=== PATIENT | male | born 1950 | race Caucasian/White ===

== ENCOUNTER 2021-12-01 15:14 | Observation (INO) | payer BC, MEDICARE, SELFPAY ==
[2021-12-01] VITALS (25 sets, daily range): BP systolic 153–193; BP diastolic 74–107; PULSE 63–84; RESP 15–29; TEMP 36.6; O2SAT 93–99; BMI 31.8
--- NOTE | 2021-12-01 15:28 | DI.RAD.S_ITS ---
PROCEDURE: XR CHEST 1V INDICATIONS: Chest pain TECHNIQUE: One view of the chest was acquired. COMPARISON: None. FINDINGS: Surgical changes and devices: None. Lungs and pleura: Lungs are clear. No pleural effusions or pneumothorax. Mediastinum: Mediastinal contours appear normal. Heart size is normal. Bones and chest wall: No suspicious bony lesions. Overlying soft tissues appear unremarkable. IMPRESSION: No acute cardiopulmonary process demonstrated radiographically. Dictated by: Luis Carlos Palomares M.D. on 12/01/2021 at 14:43 Approved by: Luis Carlos Palomares M.D. on 12/01/2021 at 14:44
--- NOTE | 2021-12-01 15:50 | DI.CT.S_ITS ---
PROCEDURE: CT ANGIO HEAD AND NECK INDICATIONS: Dizziness TECHNIQUE: Pre-contrast 4.5 mm thick sections acquired from the foramen magnum to the vertex. After the administration of intravenous contrast, 1 mm thick sections acquired from the aortic arch through the [place] of [place]. Post-contrast 4.5 mm thick sections then re-acquired from the foramen magnum to the vertex. 3-dimensional wvsskyf-flmqihfpp-fgkmxefuvs (MIP) and/or volume rendering reformats were acquired of the central intracranial vasculature and neck separately. COMPARISON: None. FINDINGS: Image quality: Excellent. BRAIN: CSF spaces: Ventricles are normal in size and shape. Basal cisterns are patent. No extra-axial fluid collections. Brain: No midline shift. No intracranial bleeds or masses. Villegas-white matter interface appears intact. Skull and face: Calvarium and facial bones appear intact, without suspicious lesions. Orbits appear normal. Sinuses: Sinuses and mastoids are clear. HEAD CT ANGIOGRAPHY: Anterior circulation: Intracranial internal carotid arteries are normal in size and flow. The flow within the paired anterior cerebral arteries is normal and symmetric. The flow within the middle cerebral arteries is normal and symmetric. The anterior communicating artery is seen. No aneurysms are seen. Posterior circulation: Visualized portions of the vertebral arteries demonstrate normal caliber, and join to form a normal appearing basilar artery. Flow within the posterior cerebral arteries is normal and symmetric. No aneurysms are seen. Vertebral arteries are codominant. NECK CT ANGIOGRAPHY: The origins of the left and right common, internal and external carotid arteries demonstrate no areas of hemodynamically significant stenosis, vascular occlusion or aneurysmal dilation. Mild calcification is noted at the origin of the left internal carotid artery. Origins of the left and right vertebral arteries demonstrate no areas of hemodynamically significant stenosis, vascular occlusion or aneurysmal dilation. Bovine arch is present consistent with congenital anatomy. Limited, visualized portions of the subclavian vasculature are unremarkable. IMPRESSION: 1. No acute intracranial process. 2. No areas of hemodynamically significant stenosis, vascular occlusion or aneurysmal dilation within the anterior or posterior circulation. 3. No areas of hemodynamically significant stenosis, vascular occlusion or aneurysmal dilation within the neck vasculature. Any quantitative measurements of stenosis were performed using NASCET criteria. Dictated by: Comfort Jacinto M.D. on 12/01/2021 at 16:24 Approved by: Comfort Jacinto M.D. on 12/01/2021 at 16:28
--- NOTE | 2021-12-01 15:51 | ED.DIZZY ---
HPI - Dizziness <Epifanio Lowe MD - Last Filed: 12/06/21 13:37> General Chief Complaint: Dizziness Stated Complaint: HBP, dizzy, R/O stroke Time Seen by Provider: 12/01/21 15:41 Source: patient Mode of arrival: Ambulatory History of Present Illness HPI Narrative: Patient sent here from urgent care for onset of dizziness at 4:30 a.m. this morning when he awoke. Went to bed last night without any difficulties or complaints. No recent illness no fever chills cough cold congestion. No nausea vomiting diarrhea or fluid loss. No urinary complaints. Denies any chest pain are headache. Patient states he got before there is more to go to the bathroom he felt very dizzy. He returned back to his bedroom and slept until 730 any awoke again. Feel a little bit better. He had a home eating and during that time still feel a little lightheaded. No confusion slurred speech or facial droop. He and his called EMS and they did arrive and evaluated him. He declined transfer. This afternoon he decided to go to the urgent care and they sent patient here. Patient states feels better when laying down. When he gets up feels more dizzy. After a little bit of walking feels like the room is spinning. No hearing changes no vision changes no nausea or vomiting. Related Data Home Medications Medication Instructions Recorded Confirmed telmisartan 80 mg tablet 80 mg PO DAILY 12/02/21 12/02/21 Previous Rx's Medication Instructions Recorded meclizine 25 mg tablet 25 mg PO TID PRN #30 tab 12/02/21 metoprolol succinate 25 mg 25 mg PO DAILY #30 tab 12/02/21 tablet,extended release 24 hr Allergies Allergy/AdvReac Type Severity Reaction Status Date / Time Sulfa (Sulfonamide Allergy Severe Swelling Verified 12/01/21 15:24 Antibiotics) of Lip/Tongue/Throat Review of Systems <Epifanio Lowe MD - Last Filed: 12/06/21 13:37> Review of Systems Narrative: GENERAL: Denies chills, fatigue, malaise, fever, sweats. HEENT: Denies sinus pain, ear pain, sore throat RESPIRATORY: Denies dyspnea, cough CARDIOVASCULAR: Denies chest pain, palpitations GASTROINTESTINAL: Denies nausea, vomiting, abdominal pain : Denies dysuria, frequency, hematuria MUSCULOSKELETAL: denies muscle or bony pain SKIN: Denies rash, skin lesions NEUROLOGIC: Denies weakness, numbness, positive for dizziness ROS Unobtainable: All systems reviewed & are unremarkable except as noted in HPI and below Patient History <Epifanio Lowe MD - Last Filed: 12/06/21 13:37> Medical History Essential hypertension Surgical History Hx of tonsillectomy Family History Father Coronary artery occlusion with myocardial infarction Mother Old age Social History household members: spouse Smoking Status: Never smoker alcohol intake: never Smoking Status: Never smoker alcohol intake frequency: 0-2 drinks per day Substance Use Type: does not use Exam <Epifanio Lowe MD - Last Filed: 12/06/21 13:37> Narrative Exam Narrative: GENERAL: in no distress, not toxic not dyspneic HEAD: Normocephalic. EYES: Pupils equal round No scleral icterus. ENT: Mucous membranes moist. NECK: Trachea midline. CARDIOVASCULAR: Regular rate and rhythm without murmurs RESPIRATORY: Clear to auscultation. Breath sounds equal bilaterally. No wheezes, rales, or rhonchi. GASTROINTESTINAL: Abdomen soft, non-tender EXTREMITIES: No gross deformities. BACK: No flank tenderness. NEURO: AOx4. Clear speech no facial droop light touch intact to bilateral face and hands with strong equal caul fat puller. Negative pronator drift. Steady Romberg. On testing gait in the hallway patient becomes slightly ataxic and tilted slightly to left and to the right at times. SKIN: Warm and dry PSYCH: Not anxious, is cooperative Initial Vital Signs Initial Vital Signs: Vital Signs Temperature 97.8 F 12/01/21 15:20 Pulse Rate 68 12/01/21 15:20 Respiratory Rate 18 12/01/21 15:20 Blood Pressure 192/99 H 12/01/21 15:20 Pulse Oximetry 99 12/01/21 15:20 <Eb Justin DO - Last Filed: 12/01/21 21:34> Initial Vital Signs Initial Vital Signs: Vital Signs Temperature 97.8 F 12/01/21 15:20 Pulse Rate 68 12/01/21 15:20 Respiratory Rate 18 12/01/21 15:20 Blood Pressure 192/99 H 12/01/21 15:20 Pulse Oximetry 99 12/01/21 15:20 Course <Epifanio Lowe MD - Last Filed: 12/06/21 13:37> Course Course Narrative: 6:00 p.m.. Sign out to Dr. Justin, labs and imaging have returned. However patient had nausea and dizziness again on retesting. After Antivert Zofran and normal saline and Ativan 0.5 mg has been ordered. Reassess blood pressure and dizziness Orders Ordered: Discontinued Medications Acetaminophen (Acetaminophen 325 Mg Tablet) 650 mg PO Q6HR PRN PRN Reason: Fever/Mild Pain (1-3) Last Admin: 12/02/21 14:22 Dose: 650 mg Documented by: Admin: 12/02/21 08:07 Dose: 650 mg Documented by: Admin: 12/01/21 23:51 Dose: 650 mg Documented by: STUART Aspirin (Aspirin Ec 81 Mg Tablet) 81 mg PO DAILY [facility] Last Admin: 12/02/21 08:06 Dose: 81 mg Documented by: JENNIFER Atorvastatin Calcium (Atorvastatin 20 Mg Tablet) 80 mg PO BEDTIME [facility] Last Admin: 12/01/21 23:51 Dose: 80 mg Documented by: STUART Clopidogrel Bisulfate (Clopidogrel 75 Mg Tablet) 75 mg PO DAILY [facility] Last Admin: 12/02/21 08:06 Dose: 75 mg Documented by: JENNIFER Enoxaparin Sodium (Enoxaparin 40 Mg/0.4 Ml Syringe) 40 mg SUBCUT DAILY [facility] Last Admin: 12/02/21 08:06 Dose: 40 mg Documented by: JENNIFER Sodium Chloride (Normal Saline 0.9%) 1,000 mls @ 1,000 mls/hr IV BOLUS ONE Stop: 12/01/21 18:30 Last Infusion: 12/01/21 18:59 Dose: 0 mls/hr Documented by: Admin: 12/01/21 17:46 Dose: 1,000 mls/hr Documented by: TANNER Labetalol HCl (Labetalol 20 Mg/4 Ml Syringe) 5 mg IV Q4HR PRN PRN Reason: Increased Blood Pressure Lorazepam (Lorazepam 2 Mg/Ml Inj) 0.5 mg IV NOW ONE Stop: 12/01/21 17:48 Last Admin: 12/01/21 17:57 Dose: 0.5 mg Documented by: TANNER Meclizine HCl (Meclizine Hcl 12.5 Mg Tablet) 25 mg PO NOW ONE Stop: 12/01/21 15:51 Last Admin: 12/01/21 16:00 Dose: 25 mg Documented by: JENNIFER Metoprolol Succinate (Metoprolol Er 25 Mg Tablet) 25 mg PO NOW ONE Stop: 12/01/21 22:33 Last Admin: 12/01/21 23:51 Dose: 25 mg Documented by: STUART Metoprolol Succinate (Metoprolol Er 25 Mg Tablet) 25 mg PO DAILY [facility] Last Admin: 12/02/21 09:14 Dose: 25 mg Documented by: JENNIFER Naloxone HCl (Naloxone 0.4 Mg/Ml Vial) 0.2 mg IV Q2MIN PRN PRN Reason: Opiate Reversal Ondansetron HCl (Ondansetron 4 Mg/2 Ml Inj) 4 mg IV NOW ONE Stop: 12/01/21 17:32 Last Admin: 12/01/21 17:47 Dose: 4 mg Documented by: TANNER Ondansetron HCl (Ondansetron 4 Mg/2 Ml Inj) 4 mg IV Q8HR PRN PRN Reason: Nausea And Vomiting Last Admin: 12/02/21 10:50 Dose: 4 mg Documented by: Admin: 12/01/21 23:23 Dose: 4 mg Documented by: MARY Vital Signs Vital signs: Vital Signs - 8 hr 12/01/21 15:20 12/01/21 17:33 12/01/21 17:34 Temperature 97.8 F Pulse Rate 68 84 Pulse Rate [Orthostatic Lying] Pulse Rate [Orthostatic Sitting] Pulse Rate [Orthostatic Standing] Respiratory Rate 18 20 Blood Pressure 192/99 H 185/95 H Blood Pressure [Orthostatic Lying] Blood Pressure [Orthostatic Sitting] Blood Pressure [Orthostatic Standing] Pulse Oximetry 99 97 12/01/21 17:44 12/01/21 18:00 12/01/21 18:01 Temperature Pulse Rate 69 69 69 Pulse Rate [Orthostatic Lying] Pulse Rate [Orthostatic Sitting] Pulse Rate [Orthostatic Standing] Respiratory Rate 18 19 18 Blood Pressure 153/80 H 182/87 H Blood Pressure [Orthostatic Lying] Blood Pressure [Orthostatic Sitting] Blood Pressure [Orthostatic Standing] Pulse Oximetry 97 95 12/01/21 18:30 12/01/21 19:00 12/01/21 20:04 Temperature Pulse Rate 66 70 80 Pulse Rate [Orthostatic Lying] Pulse Rate [Orthostatic Sitting] Pulse Rate [Orthostatic Standing] Respiratory Rate 15 20 19 Blood Pressure 170/81 H 179/89 H Blood Pressure [Orthostatic Lying] Blood Pressure [Orthostatic Sitting] Blood Pressure [Orthostatic Standing] Pulse Oximetry 94 97 99 12/01/21 20:05 Temperature Pulse Rate Pulse Rate [Orthostatic Lying] 76 Pulse Rate [Orthostatic Sitting] 80 Pulse Rate [Orthostatic Standing] 80 Respiratory Rate Blood Pressure Blood Pressure [Orthostatic Lying] 182/92 H Blood Pressure [Orthostatic Sitting] 193/96 H Blood Pressure [Orthostatic Standing] 187/107 H Pulse Oximetry <Eb Justin, DO - Last Filed: 12/01/21 21:34> Course Course Narrative: 6:00 p.m.. Sign out to Dr. Justin, labs and imaging have returned. However patient had nausea and dizziness again on retesting. After Antivert Zofran and normal saline and Ativan 0.5 mg has been ordered. Reassess blood pressure and dizziness 1800 (Nhan) I received this patient in sign-out from Dr. Lowe. I performed an independent history and physical exam. Patient has a concerning history and physical exam, despite the above-stated therapies his dizziness persists it he is ataxic. Imaging thus far has been reassuring. On exam his dizziness is not obviously reproducible and there is no nystagmus, it is not clearly plate to a peripheral cause. His blood pressure has been fluctuating a bit but there is no temporal relationship between the higher pressures and his symptoms. Patient will require hospitalization for further evaluation and treatment Orders Ordered: Discontinued Medications Acetaminophen (Acetaminophen 325 Mg Tablet) 650 mg PO Q6HR PRN PRN Reason: Fever/Mild Pain (1-3) Last Admin: 12/02/21 14:22 Dose: 650 mg Documented by: Admin: 12/02/21 08:07 Dose: 650 mg Documented by: Admin: 12/01/21 23:51 Dose: 650 mg Documented by: STUART Aspirin (Aspirin Ec 81 Mg Tablet) 81 mg PO DAILY [facility] Last Admin: 12/02/21 08:06 Dose: 81 mg Documented by: JENNIFER Atorvastatin Calcium (Atorvastatin 20 Mg Tablet) 80 mg PO BEDTIME [facility] Last Admin: 12/01/21 23:51 Dose: 80 mg Documented by: STUART Clopidogrel Bisulfate (Clopidogrel 75 Mg Tablet) 75 mg PO DAILY [facility] Last Admin: 12/02/21 08:06 Dose: 75 mg Documented by: JENNIFER Enoxaparin Sodium (Enoxaparin 40 Mg/0.4 Ml Syringe) 40 mg SUBCUT DAILY [facility] Last Admin: 12/02/21 08:06 Dose: 40 mg Documented by: JENNIFER Sodium Chloride (Normal Saline 0.9%) 1,000 mls @ 1,000 mls/hr IV BOLUS ONE Stop: 12/01/21 18:30 Last Infusion: 12/01/21 18:59 Dose: 0 mls/hr Documented by: Admin: 12/01/21 17:46 Dose: 1,000 mls/hr Documented by: TANNER Labetalol HCl (Labetalol 20 Mg/4 Ml Syringe) 5 mg IV Q4HR PRN PRN Reason: Increased Blood Pressure Lorazepam (Lorazepam 2 Mg/Ml Inj) 0.5 mg IV NOW ONE Stop: 12/01/21 17:48 Last Admin: 12/01/21 17:57 Dose: 0.5 mg Documented by: TANNER Meclizine HCl (Meclizine Hcl 12.5 Mg Tablet) 25 mg PO NOW ONE Stop: 12/01/21 15:51 Last Admin: 12/01/21 16:00 Dose: 25 mg Documented by: JENNIFER Metoprolol Succinate (Metoprolol Er 25 Mg Tablet) 25 mg PO NOW ONE Stop: 12/01/21 22:33 Last Admin: 12/01/21 23:51 Dose: 25 mg Documented by: STUART Metoprolol Succinate (Metoprolol Er 25 Mg Tablet) 25 mg PO DAILY [facility] Last Admin: 12/02/21 09:14 Dose: 25 mg Documented by: JENNIFER Naloxone HCl (Naloxone 0.4 Mg/Ml Vial) 0.2 mg IV Q2MIN PRN PRN Reason: Opiate Reversal Ondansetron HCl (Ondansetron 4 Mg/2 Ml Inj) 4 mg IV NOW ONE Stop: 12/01/21 17:32 Last Admin: 12/01/21 17:47 Dose: 4 mg Documented by: TANNER Ondansetron HCl (Ondansetron 4 Mg/2 Ml Inj) 4 mg IV Q8HR PRN PRN Reason: Nausea And Vomiting Last Admin: 12/02/21 10:50 Dose: 4 mg Documented by: Admin: 12/01/21 23:23 Dose: 4 mg Documented by: MARY Vital Signs Vital signs: Vital Signs - 8 hr 12/01/21 15:20 12/01/21 17:33 12/01/21 17:34 Temperature 97.8 F Pulse Rate 68 84 Pulse Rate [Orthostatic Lying] Pulse Rate [Orthostatic Sitting] Pulse Rate [Orthostatic Standing] Respiratory Rate 18 20 Blood Pressure 192/99 H 185/95 H Blood Pressure [Orthostatic Lying] Blood Pressure [Orthostatic Sitting] Blood Pressure [Orthostatic Standing] Pulse Oximetry 99 97 12/01/21 17:44 12/01/21 18:00 12/01/21 18:01 Temperature Pulse Rate 69 69 69 Pulse Rate [Orthostatic Lying] Pulse Rate [Orthostatic Sitting] Pulse Rate [Orthostatic Standing] Respiratory Rate 18 19 18 Blood Pressure 153/80 H 182/87 H Blood Pressure [Orthostatic Lying] Blood Pressure [Orthostatic Sitting] Blood Pressure [Orthostatic Standing] Pulse Oximetry 97 95 12/01/21 18:30 12/01/21 19:00 12/01/21 20:04 Temperature Pulse Rate 66 70 80 Pulse Rate [Orthostatic Lying] Pulse Rate [Orthostatic Sitting] Pulse Rate [Orthostatic Standing] Respiratory Rate 15 20 19 Blood Pressure 170/81 H 179/89 H Blood Pressure [Orthostatic Lying] Blood Pressure [Orthostatic Sitting] Blood Pressure [Orthostatic Standing] Pulse Oximetry 94 97 99 12/01/21 20:05 Temperature Pulse Rate Pulse Rate [Orthostatic Lying] 76 Pulse Rate [Orthostatic Sitting] 80 Pulse Rate [Orthostatic Standing] 80 Respiratory Rate Blood Pressure Blood Pressure [Orthostatic Lying] 182/92 H Blood Pressure [Orthostatic Sitting] 193/96 H Blood Pressure [Orthostatic Standing] 187/107 H Pulse Oximetry MDM - Dizziness <Epifanio Lowe MD - Last Filed: 12/06/21 13:37> Differential Diagnosis Differential diagnosis: Likely benign paroxysmal positional vertigo, orthostatic hypotension, vertebral basilar insufficiency, cerebrovascular accident, acute vestibular neuronitis, transient cerebral ischemia and other (Vertigo) Lab Data Result diagrams: 12/02/21 04:37 12/02/21 04:37 Labs: Lab Results 12/01/21 12/01/21 12/01/21 Range/Units 15:47 15:47 15:47 WBC 10.9 (4.5-11.0) X10^3/uL RBC 5.52 (4.5-5.9) X10^6/uL Hgb 16.5 (13.5-17.5) g/dL Hct 48.4 (41-53) % MCV 87.7 (80-100) fL MCH 29.8 (26-34) PG MCHC 34.0 (30-36) % RDW 13.8 (11.6-14.8) % Plt Count 350 (150-400) X10^3/uL Neut % (Auto) 88.7 H (50-75) % Lymph % (Auto) 8.0 L (25-40) % Avery % (Auto) 2.7 L (3-14) % Eos % (Auto) 0.1 L (2-4) % Baso % (Auto) 0.5 (0-2) % Neut # (Auto) 9700 H (8828-8858) /uL Lymph # (Auto) 900 L (4592-7740) /uL Avery # (Auto) 300 (0-900) /uL Eos # (Auto) 0 (0-450) /uL Baso # (Auto) 100 (0-100) /uL Sodium 139 (137-145) mmol/L Potassium 4.2 (3.4-5.1) mmol/L Chloride 104 (98-107) mmol/L Carbon Dioxide 24 (22-32) mmol/L BUN 13 (9-20) mg/dL Creatinine 0.79 (0.66-1.25) mg/dL Estimated GFR > 60.0 (>60) mL/min BUN/Creatinine Ratio 16.5 (6-22) Glucose 143 H (80-110) mg/dL Calcium 9.4 (8.4-10.2) mg/dL Magnesium 2.0 (1.6-2.3) mg/dL Total Bilirubin 0.8 (0.2-1.3) mg/dL AST 28 (17-59) IU/L ALT 21 (<50) IU/L Alkaline Phosphatase 57 (38-126) U/L Total Creatine Kinase 51 L (55-170) U/L CK-MB (CK-2) TNP CK-MB (CK-2) Rel Index TNP Troponin I < 0.012 (0.01-0.034) ng/mL Total Protein 7.6 (6.3-8.2) g/dL Albumin 4.8 (3.5-5.0) g/dL Globulin 2.8 (1.7-4.1) g/dL Albumin/Globulin Ratio 1.7 (1.0-2.8) TSH 0.455 L (0.47-4.68) uIU/mL Imaging Data Chest x-ray: Radiologist's Impression: [address] [address] XRay Report Signed Patient: Erick Purvis MR#: [id number] : 1950 Acct:[id number] Age/Sex: 71 / M Date of Service: 12/01/21 Loc: ED Accession Number: [id number] ?? Procedure: XR chest 1V Ordering Provider: Epifanio Lowe MD PROCEDURE:? XR CHEST 1V ? INDICATIONS:? Chest pain ? TECHNIQUE:? One view of the chest was acquired.? ? COMPARISON:? None. ? FINDINGS:? ? Surgical changes and devices:? None.? ? Lungs and pleura:? Lungs are clear.? No pleural effusions or pneumothorax.? ? Mediastinum:? Mediastinal contours appear normal.? Heart size is normal.? ? Bones and chest wall:? No suspicious bony lesions.? Overlying soft tissues appear unremarkable.? ? IMPRESSION:? No acute cardiopulmonary process demonstrated radiographically. ? ? Dictated by: Luis Carlos Palomares M.D. on 12/01/2021 at 14:43 ? ? Approved by: Luis Carlos Palomares M.D. on 12/01/2021 at 14:44 ? CTA - brain/neck: Radiologist's Impression: [address] [address] [address] Scan Report Signed Patient: Erick Purvis#: [id number] : 1950 Acct:[id number] Age/Sex: 71 / M Date of Service: 12/01/21 Loc: ED Accession Number: [id number] ?? Procedure: CT angio head and neck Ordering Provider: Epifanio Lowe MD PROCEDURE:? CT ANGIO HEAD AND NECK ? INDICATIONS:? Dizziness ? TECHNIQUE:? Pre-contrast 4.5 mm thick sections acquired from the foramen magnum to the vertex.? After the administration of intravenous contrast, 1 mm thick sections acquired from the aortic arch through the [place].? Post-contrast 4.5 mm thick sections then re-acquired from the foramen magnum to the vertex.? 3-dimensional teavucr-rguhnehnh-janrtgcepz (MIP) and/or volume rendering reformats were acquired of the central intracranial vasculature and neck separately. ? COMPARISON:? None. ? FINDINGS:? Image quality:? Excellent.? ? BRAIN:? CSF spaces:? Ventricles are normal in size and shape.? Basal cisterns are patent.? No extra-axial fluid collections.? ? Brain:? No midline shift.? No intracranial bleeds or masses.? Villegas-white matter interface appears intact.? ? Skull and face:? Calvarium and facial bones appear intact, without suspicious lesions.? Orbits appear normal.? ? Sinuses:? Sinuses and mastoids are clear.? ? HEAD CT ANGIOGRAPHY:? Anterior circulation:? Intracranial internal carotid arteries are normal in size and flow.? The flow within the paired anterior cerebral arteries is normal and symmetric.? The flow within the middle cerebral arteries is normal and symmetric.? The anterior communicating artery is seen.? No aneurysms are seen.? ? Posterior circulation:? Visualized portions of the vertebral arteries demonstrate normal caliber, and join to form a normal appearing basilar artery.? Flow within the posterior cerebral arteries is normal and symmetric.? No aneurysms are seen.? Vertebral arteries are codominant. ? NECK CT ANGIOGRAPHY:? The origins of the left and right common, internal and external carotid arteries demonstrate no areas of hemodynamically significant stenosis, vascular occlusion or aneurysmal dilation.? Mild calcification is noted at the origin of the left internal carotid artery.? Origins of the left and right vertebral arteries demonstrate no areas of hemodynamically significant stenosis, vascular occlusion or aneurysmal dilation.? Bovine arch is present consistent with congenital anatomy.? Limited, visualized portions of the subclavian vasculature are unremarkable. ? ? IMPRESSION:? ? 1. No acute intracranial process. ? 2. No areas of hemodynamically significant stenosis, vascular occlusion or aneurysmal dilation within the anterior or posterior circulation.? ? 3. No areas of hemodynamically significant stenosis, vascular occlusion or aneurysmal dilation within the neck vasculature. ? Any quantitative measurements of stenosis were performed using NASCET criteria.? ? ? Dictated by: Comfort Jacinto M.D. on 12/01/2021 at 16:24 ? ? Approved by: Comfort Jacinto M.D. on 12/01/2021 at 16:28 ? ECG Data Interpretation: Normal sinus rhythm rate [address] elevation or depression., left axis deviation <Eb Justin DO - Last Filed: 12/01/21 21:34> Lab Data Labs: Lab Results 12/01/21 12/01/21 12/01/21 Range/Units 15:47 15:47 15:47 WBC 10.9 (4.5-11.0) X10^3/uL RBC 5.52 (4.5-5.9) X10^6/uL Hgb 16.5 (13.5-17.5) g/dL Hct 48.4 (41-53) % MCV 87.7 (80-100) fL MCH 29.8 (26-34) PG MCHC 34.0 (30-36) % RDW 13.8 (11.6-14.8) % Plt Count 350 (150-400) X10^3/uL Neut % (Auto) 88.7 H (50-75) % Lymph % (Auto) 8.0 L (25-40) % Avery % (Auto) 2.7 L (3-14) % Eos % (Auto) 0.1 L (2-4) % Baso % (Auto) 0.5 (0-2) % Neut # (Auto) 9700 H (8350-2534) /uL Lymph # (Auto) 900 L (0435-0754) /uL Avery # (Auto) 300 (0-900) /uL Eos # (Auto) 0 (0-450) /uL Baso # (Auto) 100 (0-100) /uL Sodium 139 (137-145) mmol/L Potassium 4.2 (3.4-5.1) mmol/L Chloride 104 (98-107) mmol/L Carbon Dioxide 24 (22-32) mmol/L BUN 13 (9-20) mg/dL Creatinine 0.79 (0.66-1.25) mg/dL Estimated GFR > 60.0 (>60) mL/min BUN/Creatinine Ratio 16.5 (6-22) Glucose 143 H (80-110) mg/dL Calcium 9.4 (8.4-10.2) mg/dL Magnesium 2.0 (1.6-2.3) mg/dL Total Bilirubin 0.8 (0.2-1.3) mg/dL AST 28 (17-59) IU/L ALT 21 (<50) IU/L Alkaline Phosphatase 57 (38-126) U/L Total Creatine Kinase 51 L (55-170) U/L CK-MB (CK-2) TNP CK-MB (CK-2) Rel Index TNP Troponin I < 0.012 (0.01-0.034) ng/mL Total Protein 7.6 (6.3-8.2) g/dL Albumin 4.8 (3.5-5.0) g/dL Globulin 2.8 (1.7-4.1) g/dL Albumin/Globulin Ratio 1.7 (1.0-2.8) TSH 0.455 L (0.47-4.68) uIU/mL Discharge Plan Departure Patient Disposition: Admitted as Observation Clinical Impression: Vertigo Admit Date/Time: 12/01/21 22:01 Admit Provider: Daniela Bejarano
[2021-12-01 15:58] LABS: Add Manual Diff / Slide Review NO; Basophils Absolute Auto 100 /uL (0-100); Basophils Percent Auto 0.5 % (0-2); Eosinophils Absolute Auto 0 /uL (0-450); Eosinophils Percent Auto 0.1 % (2-4); Hematocrit 48.4 % (41-53); Hemoglobin 16.5 g/dL (13.5-17.5); Lymphocytes Absolute Auto 900 /uL (1100-4500); Mean Corpuscular Hemoglobin 29.8 PG (26-34); Mean Corpuscular Volume 87.7 fL (80-100); Monocytes Absolute Auto 300 /uL (0-900); Monocytes Percent Auto 2.7 % (3-14); Neutrophils Absolute Auto 9700 /uL (1500-7000); Neutrophils Percent Auto 88.7 % (50-75); Platelet Count 350 X10^3/uL (150-400); Red Blood Cell Count 5.52 X10^6/uL (4.5-5.9); Red Cell Distribution Width 13.8 % (11.6-14.8); White Blood Cell Count 10.9 X10^3/uL (4.5-11.0)
[2021-12-01] MEDS: MECLIZINE HCL 12.5 MG TABLET 25 MG PO (16:00)
[2021-12-01 16:19] LABS: Alanine Aminotransferase 21 IU/L (<50); Albumin 4.8 g/dL (3.5-5.0); Albumin Globulin Ratio 1.7 (1.0-2.8); Alkaline Phosphatase 57 U/L (38-126); Aspartate Aminotransferase 28 IU/L (17-59); BUN Creatinine Ratio 16.5 (6-22); Bilirubin Total 0.8 mg/dL (0.2-1.3); Blood Urea Nitrogen 13 mg/dL (9-20); Calcium 9.4 mg/dL (8.4-10.2); Carbon Dioxide 24 mmol/L (22-32); Chloride 104 mmol/L (98-107); Creatine Kinase 51 U/L (55-170); Estimated Glomerular Filt Rate > 60.0 mL/min (>60); Globulin 2.8 g/dL (1.7-4.1); Glucose 143 mg/dL (80-110); HEMOLYSIS 16 (0-50); Potassium 4.2 mmol/L (3.4-5.1); Sodium 139 mmol/L (137-145); Total Protein 7.6 g/dL (6.3-8.2)
[2021-12-01 16:30] LABS: Troponin I < 0.012 ng/mL (0.01-0.034)
--- NOTE | 2021-12-01 17:35 | PC.NURSE ---
patient ambulated around department with no difficulty. patient did report feeling woozy. [facility] and [facility]. provider aware.
[2021-12-01] MEDS: SODIUM CHLORIDE 0.9% 1,000 ML 1000 ML IV (17:46)
[2021-12-01] MEDS: ONDANSETRON 4 MG/2 ML INJ IV ×2 (17:47→23:23)
[2021-12-01] MEDS: LORazepam 2 MG/ML INJ 0.5 MG IV (17:57)
--- NOTE | 2021-12-01 19:20 | PC.NURSE ---
Pt reports waking up in the middle of the night feeling lightheaded with nausea. States the feeling has come and gone throughout the day. Patient was woozy and vomited while ambulating in the ED around 1730, provider aware.
--- NOTE | 2021-12-01 22:29 | DI.ECHO.S_ITS ---
[facility]---------[facility] +---------+ : : [address] : [place] : : : : [id number] : : : : Phone: [phone]+ Echocardiogram Report + + :Name: SHANIA MANCERA Study Date: 12/02/2021 Height: 71 in : :[facility] ReadingLocation: Weight: 228 lb : : Gender: Male BSA: 2.2 m2 : :: 1950 Age: 71 yrs BP: 160/76 mmHg: :Reason For Study: HYPERTENSIVE URGENCY, VERTIGO : :Ordering Physician: Mariaelena THAKKARformed By: Tamica Gee : :Referring: GLADYS THAKKAR : + + Interpretation Summary The left ventricle is normal in size and wall thickness. Left ventricular systolic function appears normal without focal wall motion abnormalities. The ejection fraction is estimated to be 60-65%. Diastolic parameters suggest probable normal left ventricular diastolic function and normal filling pressures. The right ventricle is normal in size and function. The right ventricular systolic pressure is estimated to be at least 37 mmHg based on an estimated right atrial pressure of 3 mm Hg. The left atrial size is normal. Right atrial size is normal. There is no Doppler evidence for an interatrial shunt. Injection of contrast documented no interatrial shunt. There is mild mitral regurgitation. There is no other significant valvular heart disease. The ascending aorta is mildly enlarged. Procedure: A two-dimensional transthoracic echocardiogram with color flow and Doppler was performed. The study quality was technically adequate. There is no prior echocardiogram noted for this patient. A saline contrast injection was performed to assess for cardiac shunting. The patient was in sinus rhythm with heart rates between 63-72 bpm during the exam. Left Ventricle: The left ventricle is normal in size and wall thickness. Left ventricular systolic function appears normal without focal wall motion abnormalities. The ejection fraction is estimated to be 60-65%. Diastolic parameters suggest probable normal left ventricular diastolic function and normal filling pressures. Right Ventricle: The right ventricle is normal in size and function. Atria: The left atrial size is normal. Right atrial size is normal. There is no Doppler evidence for an interatrial shunt. Injection of contrast documented no interatrial shunt. Mitral Valve: The mitral valve is normal in structure and function. There is mild mitral regurgitation. Aortic Valve: The aortic valve is trileaflet. The aortic valve opens well. There is no aortic valve stenosis. There is no aortic regurgitation. Tricuspid Valve: The tricuspid valve is normal in structure and function. There is mild tricuspid regurgitation. The right ventricular systolic pressure is estimated to be at least 37 mmHg based on an estimated right atrial pressure of 3 mm Hg. Pulmonic Valve: The pulmonic valve is not well seen, but is grossly normal. There is trace pulmonic regurgitation. There is no other significant valvular heart disease. Great Vessels: The aortic root is normal size. The ascending aorta is mildly enlarged. The IVC is of normal diameter and collapses greater than 50% with a sniff. This suggests a low right atrial pressure of 3 mm Hg. Pericardium/ Pleura There is no pericardial effusion. There is no pleural effusion. MMode/2D Measurements & Calculations LVIDd: 5.0 cm LVOT diam: 2.1 cm LVIDs: 3.3 cm Ao root diam: 3.2 cm FS: 34.3 % asc Aorta Diam: 3.6 cm IVSd: 0.97 cm Ao Arch Diam (Prox Trans): 3.3 cm LVPWd: 0.93 cm LV garner. diameter/BSA (cm/m^2): 2.2 LV sys. diameter/BSA (cm/m^2): 1.5 LA A2 area: 22.3 cm2 RA long axis: 5.1 cm LA A4 area: 20.9 cm2 RA area: 17.5 cm2 LA length (vol): 5.8 cm RA vol: 51.1 ml LA vol: 68.1 ml RA : 22.9 ml/m2 LA vol index: 30.5 ml/m2 IVC diam: 1.9 cm RVD1 (basal): 3.9 cm TAPSE: 2.3 cm Doppler Measurements & Calculations Ao V2 max: 162.8 cm/sec LVOT Max Evelio: 112.8 cm/sec Ao V2 mean: 107.4 cm/sec LV V1 max P.1 mmHg Ao max P.6 mmHg LV V1 VTI: 26.1 cm Ao mean P.5 mmHg ALLYSON(I,D): 2.6 cm2 Ao V2 VTI: 35.1 cm ALLYSON(V,D): 2.4 cm2 sev ratio: 0.74 ALLYSON indexed to BSA (cm^2/m^2): 1.2 MV E max evelio: 96.9 cm/sec TR max evelio: 292.2 cm/sec MV A max evelio: 97.8 cm/sec TR max P.2 mmHg MV E/A: 0.99 PA V2 max: 104.7 cm/sec Med Peak E' Evelio: 8.5 cm/sec PA V2 mean: 68.5 cm/sec E/E' med: 11.4 PA mean P.2 mmHg Lat Peak E' Evelio: 11.8 cm/sec PA pr(Accel): 15.6 mmHg E/E' lat: 8.2 E/e' average: 9.8 MV dec time: 0.22 sec SV(LVOT): 90.7 ml Reading Physician:08:44 AM
[2021-12-01 23:31] LABS: Hemoglobin A1C% w Est Avg Glu 5.8 % (4.0-6.0)
[2021-12-01 23:41] LABS: Troponin I < 0.012 ng/mL (0.01-0.034)
[2021-12-01] MEDS: ATORVASTATIN 20 MG TABLET 80 MG PO (23:51)
[2021-12-01] MEDS: ACETAMINOPHEN 325 MG TABLET 650 MG PO (23:51)
[2021-12-01] MEDS: METOPROLOL ER 25 MG TABLET PO (23:51)
[2021-12-02] VITALS (27 sets, daily range): BP systolic 160–174; BP diastolic 76–85; PULSE 53–72; RESP 14–24; TEMP 37.1; O2SAT 92–98; BMI 31.8
[2021-12-02 00:12] LABS: COVID19 - ADMIT (NP swab/PCR) Negative (Negative)
--- NOTE | 2021-12-02 00:15 | P.HP_ITS ---
History of Present Illness History of Present Illness Date Patient Seen: 12/01/21 Time Patient Seen: 23:45 Chief complaint: HBP, dizzy, R/O stroke Narrative: Erick Purvis is a 71-year-old male currently being treated for hypertension with felodipine and telmisartan, was referred to the ED by the urgent care center for onset of dizziness at 4:30 a.m. this morning when he awoke.? Denied vision or hearing changes, recent illness, fever, chills, cough or congestion. Denies any chest pain or shortness of breath.? Denies nausea vomiting diarrhea or fluid loss until he was in the ED.? Denies dysria.? Patient states he got to go to the bathroom, he felt very dizzy.? He returned back to bed and slept until 7:30 am.? Feel a little bit better.? He did not present with confusion, slurred speech or facial droop.? He and his called EMS and they did arrive and evaluated him.? Patient states feels better when laying down.? When he gets up feels more dizzy and vomited once in the ED just before I went into see him. CTA and chest xray ordered while in the ED were negative. He has been persistently hypertensive in the emergency department and currently is blood pressure is 182/92. His afebrile, heart rate 76, respiratory rate 6, oxygen saturation 99% on room air, he weighs 103.4 kg with a BMI of 31. WBC is unremarkable he has a mild left shift of 9700, glucose 143, hemoglobin A1c today was 5.8, and his TSH is 0.455. COVID-19 PCR is negative. Patient History Medical History Essential hypertension Surgical History Hx of tonsillectomy Family & Social History Family History Father Coronary artery occlusion with myocardial infarction Mother Old age Safety & Behavioral: Feels Safe in Current Yes Environment Tobacco & Substance use: Smoking Status Never smoker alcohol intake frequency denied Substance Use Type does not use Meds Home Medications and Allergies Allergies Allergy/AdvReac Type Severity Reaction Status Date / Time Sulfa (Sulfonamide Allergy Severe Swelling Verified 12/01/21 15:24 Antibiotics) of Lip/Tongue/Throat Review of Systems Review of Systems ROS: Yes All systems reviewed with the patient and are negative except as otherwise documented Exam Vital Signs (past 8 hours): - 12/01/21 17:33 12/01/21 17:34 12/01/21 17:44 Pulse Rate 84 69 Pulse Rate [Orthostatic Lying] Pulse Rate [Orthostatic Sitting] Pulse Rate [Orthostatic Standing] Respiratory Rate 20 18 Blood Pressure 185/95 H 153/80 H Blood Pressure [Orthostatic Lying] Blood Pressure [Orthostatic Sitting] Blood Pressure [Orthostatic Standing] Pulse Oximetry 97 12/01/21 18:00 12/01/21 18:01 12/01/21 18:30 Pulse Rate 69 69 66 Pulse Rate [Orthostatic Lying] Pulse Rate [Orthostatic Sitting] Pulse Rate [Orthostatic Standing] Respiratory Rate 19 18 15 Blood Pressure 182/87 H 170/81 H Blood Pressure [Orthostatic Lying] Blood Pressure [Orthostatic Sitting] Blood Pressure [Orthostatic Standing] Pulse Oximetry 97 95 94 12/01/21 19:00 12/01/21 20:04 12/01/21 20:05 Pulse Rate 70 80 Pulse Rate [Orthostatic Lying] 76 Pulse Rate [Orthostatic Sitting] 80 Pulse Rate [Orthostatic Standing] 80 Respiratory Rate 20 19 Blood Pressure 179/89 H Blood Pressure [Orthostatic Lying] 182/92 H Blood Pressure [Orthostatic Sitting] 193/96 H Blood Pressure [Orthostatic Standing] 187/107 H Pulse Oximetry 97 99 Oxygen Delivery Method Room Air Narrative Exam Narrative: Gen: Alert, oriented, well-developed 71 y.o. male, NAD HEENT: normocephalic, atraumatic, conjunctiva clear, sclera non-icteric, oral mucosa pink and moist Neck: supple, full ROM, no JVD, trachea is midline Resp: Lungs CTA, non-labored breathing CV: RRR, no murmur or rubs Abd: soft, non-tender, normoactive BTs Skin: no lesions or rashes, dry and intact Neuro: Alert and oriented X 4 w/no focal deficits. Speech clear and coherent. Extremities: moves all 4 extremities, is ambulatory, negative Renzo?s sign Psyche: normal mood and affect. Objective Labs Result Diagrams: 12/01/21 15:47 12/01/21 15:47 Labs: Laboratory Results - last 24 hr 12/01/21 12/01/21 12/01/21 15:47 15:47 23:00 WBC 10.9 RBC 5.52 Hgb 16.5 Hct 48.4 MCV 87.7 MCH 29.8 MCHC 34.0 RDW 13.8 Plt Count 350 Neut % (Auto) 88.7 H Lymph % (Auto) 8.0 L [place] % (Auto) 2.7 L Eos % (Auto) 0.1 L Baso % (Auto) 0.5 Neut # (Auto) 9700 H Lymph # (Auto) 900 L [place] # (Auto) 300 Eos # (Auto) 0 Baso # (Auto) 100 Sodium 139 Potassium 4.2 Chloride 104 Carbon Dioxide 24 BUN 13 Creatinine 0.79 Estimated GFR > 60.0 BUN/Creatinine Ratio 16.5 Glucose 143 H Hemoglobin A1c 5.8 Calcium 9.4 Magnesium 2.0 Total Bilirubin 0.8 AST 28 ALT 21 Alkaline Phosphatase 57 Total Creatine Kinase 51 L CK-MB (CK-2) TNP CK-MB (CK-2) Rel Index TNP Troponin I < 0.012 Total Protein 7.6 Albumin 4.8 Globulin 2.8 Albumin/Globulin Ratio 1.7 SARS-CoV-2 (PCR) 12/01/21 12/01/21 23:00 23:25 WBC RBC Hgb Hct MCV MCH MCHC RDW Plt Count Neut % (Auto) Lymph % (Auto) [place] % (Auto) Eos % (Auto) Baso % (Auto) Neut # (Auto) Lymph # (Auto) [place] # (Auto) Eos # (Auto) Baso # (Auto) Sodium Potassium Chloride Carbon Dioxide BUN Creatinine Estimated GFR BUN/Creatinine Ratio Glucose Hemoglobin A1c Calcium Magnesium Total Bilirubin AST ALT Alkaline Phosphatase Total Creatine Kinase CK-MB (CK-2) CK-MB (CK-2) Rel Index Troponin I < 0.012 Total Protein Albumin Globulin Albumin/Globulin Ratio SARS-CoV-2 (PCR) Negative Assessment & Plan Assessment & Plan narrative: Erick Purvis is admitted for further workup of a CVA. 1. CVA workup unknown if present on admission * Cardiac telemetry * NIH score greater than 5 no, NIH scoring and neuro checks q 4 hours * Dual antiplatelet therapy: X yes, initiate dual antiplatelet therapy with clopidogrel 75 mg p.o. daily and aspirin 81 mg p.o. daily * MR stroke scheduled for 11/01 * Complete Echo with bubble study for 12/02 * PT/OT/ST evaluation 2. Hypertensive urgency, acute with an admission bp of 192/99, present on admi ssion * Allow for permissive hypertension of 220/110 HR 60 to allow for brain perfusion * IV labetolol if his systolic exceeds 220 or diastolic greater than 105. 3. Vertigo, acute, present on admission * Meclizine 25 mg Q 6 as needed 4. Nausea and vomiting, acute * Zofran 4 mg IV q.6 hours as needed 5. Risk stratification * Fasting lipid panel, pending for 0500 labs * Atorvastatin 80 mg po at bedtime * A1c is 5.8 % [X] pre-diabetic VTE Prophylaxis: Wells risk score 0 X Enoxaparin 40 mg subQ once daily X Bilateral SCDs Patient is admitted to the inpatient service due to the severity of disease, risks of further disease progression and this stay is expected to exceed 2 midnights. FEN: IV fluids: saline lock, diet: heart healthy, labs: CBC, C/BMP, liver enzymes, [employer] None Dispo: Probable discharge to home Code status: Full Code as discussed with the patient who identifies his , Zakiya as his surrogate and POA. [X] I have utilized all available immediate resources to obtain, update, or review of the patient's current medications COVID-19 COVID-19 status: Negative Result date/Date tested (Pos, Neg/Pending): 12/01/21 Scores Wells' Criteria for PE Clinical signs and symptoms of DVT: No PE is #1 Dx or equally likely: No Heart rate > 100: No Immobilization at least 3 days or surg in previous 4 weeks: No History of PE or DVT: No Hemoptysis: No Malignancy w/Treatment within 6 months or palliative: No Wells' PE Score total: 0 Quality MIPS - Admit I confirm the patient?s Advance Care Plan is present, Code status is documented, Surrogate decision maker is in patient?s record [If Yes, STOP here]: Yes MIPS - DC The patient has current or prior documentation of left ventricular ejection fraction (LVEF) less than 40%, or moderate or severely depressed left ventricular systolic function.: No
[2021-12-02 00:56] LABS: Thyroid Stimulating Hormone 0.455 uIU/mL (0.47-4.68)
[2021-12-02 05:23] LABS: Add Manual Diff / Slide Review NO; Basophils Absolute Auto 0 /uL (0-100); Basophils Percent Auto 0.1 % (0-2); Eosinophils Absolute Auto 0 /uL (0-450); Eosinophils Percent Auto 0.1 % (2-4); Hematocrit 44.5 % (41-53); Lymphocytes Absolute Auto 800 /uL (1100-4500); Lymphocytes Percent Auto 6.8 % (25-40); Mean Corpuscular HGB Conc 33.8 % (30-36); Mean Corpuscular Hemoglobin 29.3 PG (26-34); Mean Corpuscular Volume 86.9 fL (80-100); Monocytes Absolute Auto 400 /uL (0-900); Monocytes Percent Auto 3.6 % (3-14); Neutrophils Absolute Auto 11000 /uL (1500-7000); Neutrophils Percent Auto 89.4 % (50-75); Platelet Count 339 X10^3/uL (150-400); Red Blood Cell Count 5.13 X10^6/uL (4.5-5.9); White Blood Cell Count 12.3 X10^3/uL (4.5-11.0)
[2021-12-02 05:29] LABS: Alanine Aminotransferase 18 IU/L (<50); Albumin 4.2 g/dL (3.5-5.0); Albumin Globulin Ratio 1.8 (1.0-2.8); Alkaline Phosphatase 47 U/L (38-126); Aspartate Aminotransferase 25 IU/L (17-59); BUN Creatinine Ratio 20.5 (6-22); Bilirubin Total 0.6 mg/dL (0.2-1.3); Bilirubin Unconjugated 0.7 mg/dL (0.0-1.1); Blood Urea Nitrogen 15 mg/dL (9-20); Calcium 8.9 mg/dL (8.4-10.2); Carbon Dioxide 25 mmol/L (22-32); Chloride 105 mmol/L (98-107); Cholesterol 141 mg/dL (140-199); Estimated Glomerular Filt Rate > 60.0 mL/min (>60); Globulin 2.4 g/dL (1.7-4.1); Glucose 132 mg/dL (80-110); HDL Cholesterol 37 mg/dL (40-60); HEMOLYSIS < 15 (0-50); LDL Cholesterol Calculated 95 mg/dL (<100); Magnesium 2.2 mg/dL (1.6-2.3); Potassium 4.1 mmol/L (3.4-5.1); Sodium 137 mmol/L (137-145); Total Protein 6.6 g/dL (6.3-8.2); Triglycerides 44 mg/dL (35-150)
[2021-12-02 05:38] LABS: Troponin I < 0.012 ng/mL (0.01-0.034)
--- NOTE | 2021-12-02 08:00 | DI.MRI.S_ITS ---
PROCEDURE: MR HEAD/BRAIN WO CON INDICATIONS: hypertensive urgency, vertigo, ataxia TECHNIQUE: Non-contrast axial T1 spin echo, axial T2 fast spin echo, sagittal and axial FLAIR, coronal T2 fast spin echo, axial gradient echo, axial diffusion and ADC through the brain. COMPARISON: [facility], CT, CT ANGIO HEAD AND NECK, 12/01/2021, 16:02. FINDINGS: Image quality: Partially degraded by metallic artifact overlying the posterosuperior calvarium midline. CSF spaces: Ventricles appear symmetric in size and shape. Basal cisterns are patent. No extra-axial fluid collections. Brain: No intracranial bleeds or mass effects. There is cerebral volume loss for age. There are periventricular and deep white matter chronic small vessel ischemic changes. Brainstem appears normal. Diffusion-weighted images show no acute ischemic insults. No chronic ischemic insults. Normal intravascular flow voids are present. Skull and face: Calvarial bone marrow is normal in signal. Orbits are normal. Sinuses: Sinuses and mastoids are clear. IMPRESSION: 1. No acute process. No recent infarct. Dictated by: Theresa Fernandez M.D. on 12/02/2021 at 8:56 Approved by: Theresa Fernandez M.D. on 12/02/2021 at 8:57
[2021-12-02] MEDS: ASPIRIN EC 81 MG TABLET PO (08:06)
[2021-12-02] MEDS: ENOXAPARIN 40 MG/0.4 ML SYRINGE SUBCUT (08:06)
[2021-12-02] MEDS: CLOPIDOGREL 75 MG TABLET PO (08:06)
[2021-12-02] MEDS: ACETAMINOPHEN 325 MG TABLET 650 MG PO ×2 (08:07→14:22)
[2021-12-02] MEDS: METOPROLOL ER 25 MG TABLET PO (09:14)
[2021-12-02] MEDS: ONDANSETRON 4 MG/2 ML INJ IV (10:50)
[2021-12-02 11:06] LABS: Troponin I < 0.012 ng/mL (0.01-0.034)
--- NOTE | 2021-12-02 11:25 | PT.IIE ---
Medical History (Last Reviewed 12/02/21 @ 02:17 by ANANYA Cross) Essential hypertension Physical Therapy Inpatient Evaluation/Re-Eval M1 PT/OT-IP Prior Functional Status Start: 12/02/21 14:46 Freq: NEEDED Status: Active Protocol: Document 12/02/21 11:25 AB (Rec: 12/02/21 14:57 AB [id number]) Medical Review Prior Functional Status Medical History Reviewed Yes Communication able to make needs known Mobility and Gait pt stated that he is independent with all mobilities and ambulation without AD Social History Household Members spouse Living Arrangements House Number of Floors (Floors) Two Floors Number of Stairs To Enter/Railing? pt stays on mail level of the house 14 steps R rail ascending to enter the house Home Environment High Toilet,Tub/Shower Home Equipment Front Wheel Walker,Four Wheel Walker,Straight Cane,Shower Seat without Backrest Additional Social History Comment pt has an adjustable bed M2 PT-IP Current Condition Start: 12/02/21 14:46 Freq: NEEDED Status: Active Protocol: Document 12/02/21 11:25 AB (Rec: 12/02/21 14:57 AB [email or web address]) Physical Therapy Current Condition Current Condition Evaluation Date 12/02/21 Treatment Diagnosis HTN; r/o CVA; difficulty in walking Onset Date 12/01/21 M3 PT-IP Subjective Start: 12/02/21 14:46 Freq: NEEDED Status: Active Protocol: Document 12/02/21 11:25 AB (Rec: 12/02/21 14:57 AB [email or web address]) Subjective Physical Therapy Visit Type Type Initial Evaluation Visit Start Time 11:25 Visit Stop Time 11:45 Total Visit Minutes 20 Number of CUSTOMER SERVICER Visits 0 Physical Therapy Visit Comments Patient Comments agreeable to do PT M4 PT-IP Mobility and Gait Start: 12/02/21 14:46 Freq: NEEDED Status: Active Protocol: Document 12/02/21 11:25 AB (Rec: 12/02/21 14:57 AB [email or web address]) PT-Bed Mobility Assessment Supine to Sit Supine to Sit Independent Sit to Supine Sit to Supine Independent PT-Transfer Assessment Sit to and From Stand Sit to and from Stand Independent Equipment Transfer Assistive Device None Orthotic/Prosthetic Devices or Brace: No Gait Assessment Gait Gait Assistance Required: Independent Assistive Devices Assistive Device None Orthotic/Prosthetic Devices or Brace: No Gait Deviations General Gait Pattern Antalgic Comments Gait Comments pt in room with spouse. c/o slight lightheadedness. BP: 153/73. completed bed mobility supine to sit independent. ambulated in room without AD independent ~ 100 ft. presents with antalgic gait with increase RLE ER but without LOB. pt stated that he had back surgery before affecting RLE. completed up/down step stool using R rail ascending SBA. checked pt's standing balance: standing NBOS with eyes closed: steady, standing with perturbation: steady, able to completed 360 turn clockwise/ counter: continuous without LOB. pt went back to bed independent with bed mobility. informed pt and spouse that there is no PT intervention indicated at this time and pt agreed. ROLL TENDER took over. Stair Climbing Assessment Evaluation Level of Assist On Stairs Standby Assistance Devices Stair Climbing Assistive Devices Right Railing Technique/Endurance Stair Climbing Direction Ascend and Descend Stair Climbing Technique Step to Step Number of Steps Climbed 1 Query Text: Stair Climbing Set # Repetitions (reps) 3 PT-Balance Assessment Sitting Balance and Reactions Static Sitting Balance Ability Normal Dynamic Sitting Balance Ability Normal Standing Balance and Reactions Static Standing Balance Ability Good Dynamic Standing Balance Ability Good Device Used withoutAD M5 PT-IP Objective Assessments Start: 12/02/21 14:46 Freq: NEEDED Status: Active Protocol: Document 12/02/21 11:25 AB (Rec: 12/02/21 14:57 AB [id number]) Orientation Orientation/Cognition Level of Alertness Alert Orientation Name,Place,Situation Language Function Ability No Deficits Noted Safety Awareness Understands Safety Issues Memory Description No Deficits Noted Gross Range of Motion Lower Extremity ROM Assessment Within Functional Limits Strength Lower Extremity Strength Assessment Within Functional Limits Coordination Assessment Gross Coordination Gross Coordination WNL Muscle Tone Muscle Tone WNL Yes M7 PT-IP Assessment and Plan Start: 12/02/21 14:46 Freq: NEEDED Status: Active Protocol: Document 12/02/21 11:25 AB (Rec: 12/02/21 14:57 AB [id number]) PT Summary Assessment and Plan Potential Rehabilitation Potential Good Summary Progress Towards Goals Safe For Discharge Assessment Summary PT eval completed. No further PT intervention indicated at this time. PT is independent with bed mobility, transfers and ambulation without AD, sBA for stair climbing for safety . Frequency of Treatment Frequency Of Treatment Discharge Recommendations To Nursing Amount of Assist Needed Independent Discharge Recommendations PT Discharge Recommendations Home Transportation Needs at Discharge Private Vehicle
--- NOTE | 2021-12-02 11:33 | PC.NURSE ---
Day shift: Pt on AC unit at approx 1120 from ED. He is A&Ox4. Spouse in room for support. Denies any pain, chest pain or SOB. He denies any dizziness at this time as well. BP 162/85. RA 97%. AGrees to not get OOB w/o help from staff. Oriented to call light and room. Placed on tele per MD orders.
--- NOTE | 2021-12-02 11:56 | ST.IPSCREEN ---
Observed patient during PT eval, completed oral motor exam and swallow screen with thin liquids through straw cup. Patient followed directions well, asked and answered questions appropriately, and demonstrated cognition and speech WNL. Oral motor exam revealed strength and ROM of tongue, lips, and jaw to be WNL. Hyolaryngeal elevation and excursion were WNL. Structures were symmetrical at rest and in motion. Structure and function of oral mechanism appears WNL for the purposes of speech and swallowing. Patient exhibited single cough following 2 trials of water, though reports this is due to phelgm and is normal for him. He stated phlegm is reduced when he is moving around or talking more and he does not cough as much. Patient coughs to clear phelgm spontaneously and reported no difficulty with chewing or swallowing. Per patient and report, he is operating at his baseline. Patient does not need speech therapy at this time.
--- NOTE | 2021-12-02 12:33 | PC.NURSE ---
Day shift: Dr Phillips informed of Pt's HR of high 40's and 50's at this time.
--- NOTE | 2021-12-02 15:17 | P.DS_ITS ---
History of Present Illness History of Present Illness Date Patient Seen: 12/02/21 Time Patient Seen: 15:17 Chief complaint: HBP, dizzy, R/O stroke Narrative: Erick Purvis is a 71-year-old male currently being treated for hypertension with felodipine and telmisartan, was referred to the ED by the urgent care center for onset of dizziness at 4:30 a.m. this morning when he awoke.? Denied vision or hearing changes, recent illness, fever, chills, cough or congestion. Denies any chest pain or shortness of breath.? Denies nausea vomiting diarrhea or fluid loss until he was in the ED.? Denies dysria.? Patient states he got to go to the bathroom, he felt very dizzy.? He returned back to bed and slept until 7:30 am.? Feel a little bit better.? He did not present with confusion, slurred speech or facial droop.? He and his called EMS and they did arrive and evaluated him.? Patient states feels better when laying down.? When he gets up feels more dizzy and vomited once in the ED just before I went into see him. CTA and chest xray ordered while in the ED were negative. He has been persistently hypertensive in the emergency department and currently is blood pressure is 182/92.? His afebrile, heart rate 76, respiratory rate 6, oxygen saturation 99% on room air, he weighs 103.4 kg with a BMI of 31.? WBC is unremarkable he has a mild left shift of 9700, glucose 143, hemoglobin A1c today was 5.8, and his TSH is 0.455.? COVID-19 PCR is negative.? Discharge Providers Provider Date of admission: 12/01/21 22:01 Discharge Date: 12/02/21 Primary care physician: Joselito Peck MD Consults: 12/01/21 22:30 Consult to Physical Therapy Evaluate & Treat Comment: Physician Instructions: Evaluate and Treat Consult to Speech Therapy Evaluate & Treat Comment: Physician Instructions: Evaluate and treat Discharge provider: Kristi Phillips MD Summary Hospital Course Discharge Diagnosis: 1. Benign positional vertigo 2. Hypertension Hospital Course: Patient was admitted to the hospital for evaluation of vertigo. He underwent orthostatic vital signs which showed no evidence of orthostasis. The patient moon d an MRI of the brain which showed no evidence of an acute stroke. Echocardiogram revealed the following findings: The left ventricle is normal in size and wall thickness. Left ventricular systolic function appears normal without focal wall motion abnormalities. The ejection fraction is estimated to be 60-65%. Diastolic parameters suggest probable normal left ventricular diastolic function and normal filling pressures. ? The right ventricle is normal in size and function. The right ventricular systolic pressure is estimated to be at least 37 mmHg based on an estimated right atrial pressure of 3 mm Hg. ? The left atrial size is normal. Right atrial size is normal. There is no Doppler evidence for an interatrial shunt. Injection of contrast documented no interatrial shunt. ? There is mild mitral regurgitation. There is no other significant valvular heart disease. ? The ascending aorta is mildly enlarged. Patient had no further significant vertigo. He had mild dizziness which was well controlled. He was deemed appropriate for discharge and arrangements were made for him to discharge home. Patient is referred back to [facility] for an outpatient referral to Physical therapy for vestibular training. Status at Discharge Cognitive/behavioral status at discharge: oriented Functional status at discharge: independent ambulation Overall status at discharge: patient is progressing back to baseline Exam Vital Signs (past 8 hours): - 12/02/21 07:30 12/02/21 08:00 12/02/21 08:48 Temperature Pulse Rate 72 66 65 Respiratory Rate 18 18 Blood Pressure 173/84 H Pulse Oximetry 97 95 95 12/02/21 09:00 12/02/21 09:14 12/02/21 09:30 Temperature Pulse Rate 57 L 65 54 L Respiratory Rate 17 19 Blood Pressure 173/84 H Pulse Oximetry 94 95 12/02/21 10:00 12/02/21 10:30 12/02/21 10:50 Temperature Pulse Rate 53 L 63 60 Respiratory Rate 19 20 20 Blood Pressure 174/83 H Pulse Oximetry 92 96 97 12/02/21 10:59 12/02/21 11:17 12/02/21 11:36 Temperature 98.8 F 98.8 F Pulse Rate 62 62 62 Respiratory Rate 18 18 Blood Pressure 174/83 H 162/85 H 162/85 H Pulse Oximetry 98 98 Oxygen Delivery Method Room Air Oxygen Flow Rate 0 Narrative Exam Narrative: Pleasant male resting comfortably in no obvious distress Resp Other: Lungs clear to auscultation Cardio Other: Cardiac exam: Regular rate and rhythm normal S1-S2 GI Other: Abdomen soft nontender nondistended Extrem Other: Extremity no edema Objective Labs Result Diagrams: 12/02/21 04:37 12/02/21 04:37 Labs: Laboratory Results - last 24 hr 12/01/21 12/01/21 12/01/21 15:47 15:47 15:47 WBC 10.9 RBC 5.52 Hgb 16.5 Hct 48.4 MCV 87.7 MCH 29.8 MCHC 34.0 RDW 13.8 Plt Count 350 Neut % (Auto) 88.7 H Lymph % (Auto) 8.0 L Chester % (Auto) 2.7 L Eos % (Auto) 0.1 L Baso % (Auto) 0.5 Neut # (Auto) 9700 H Lymph # (Auto) 900 L Chester # (Auto) 300 Eos # (Auto) 0 Baso # (Auto) 100 Sodium 139 Potassium 4.2 Chloride 104 Carbon Dioxide 24 BUN 13 Creatinine 0.79 Estimated GFR > 60.0 BUN/Creatinine Ratio 16.5 Glucose 143 H Hemoglobin A1c Calcium 9.4 Magnesium 2.0 Total Bilirubin 0.8 Conjugated Bilirubin Unconjugated Bilirubin AST 28 ALT 21 Alkaline Phosphatase 57 Total Creatine Kinase 51 L CK-MB (CK-2) TNP CK-MB (CK-2) Rel Index TNP Troponin I < 0.012 Total Protein 7.6 Albumin 4.8 Globulin 2.8 Albumin/Globulin Ratio 1.7 Triglycerides Cholesterol LDL Cholesterol, Calc HDL Cholesterol TSH 0.455 L SARS-CoV-2 (PCR) 12/01/21 12/01/21 12/01/21 23:00 23:00 23:25 WBC RBC Hgb Hct MCV MCH MCHC RDW Plt Count Neut % (Auto) Lymph % (Auto) Chester % (Auto) Eos % (Auto) Baso % (Auto) Neut # (Auto) Lymph # (Auto) Chester # (Auto) Eos # (Auto) Baso # (Auto) Sodium Potassium Chloride Carbon Dioxide BUN Creatinine Estimated GFR BUN/Creatinine Ratio Glucose Hemoglobin A1c 5.8 Calcium Magnesium Total Bilirubin Conjugated Bilirubin Unconjugated Bilirubin AST ALT Alkaline Phosphatase Total Creatine Kinase CK-MB (CK-2) CK-MB (CK-2) Rel Index Troponin I < 0.012 Total Protein Albumin Globulin Albumin/Globulin Ratio Triglycerides Cholesterol LDL Cholesterol, Calc HDL Cholesterol TSH SARS-CoV-2 (PCR) Negative 12/02/21 12/02/21 12/02/21 04:37 04:37 04:37 WBC 12.3 H RBC 5.13 Hgb 15.0 Hct 44.5 MCV 86.9 MCH 29.3 MCHC 33.8 RDW 14.0 Plt Count 339 Neut % (Auto) 89.4 H Lymph % (Auto) 6.8 L Chester % (Auto) 3.6 Eos % (Auto) 0.1 L Baso % (Auto) 0.1 Neut # (Auto) 68285 H Lymph # (Auto) 800 L Chester # (Auto) 400 Eos # (Auto) 0 Baso # (Auto) 0 Sodium 137 Potassium 4.1 Chloride 105 Carbon Dioxide 25 BUN 15 Creatinine 0.73 Estimated GFR > 60.0 BUN/Creatinine Ratio 20.5 Glucose 132 H Hemoglobin A1c Calcium 8.9 Magnesium 2.2 Total Bilirubin Conjugated Bilirubin Unconjugated Bilirubin AST ALT Alkaline Phosphatase Total Creatine Kinase CK-MB (CK-2) CK-MB (CK-2) Rel Index Troponin I < 0.012 Total Protein Albumin Globulin Albumin/Globulin Ratio Triglycerides 44 Cholesterol 141 LDL Cholesterol, Calc 95 HDL Cholesterol 37 L TSH SARS-CoV-2 (PCR) 12/02/21 12/02/21 04:37 10:37 WBC RBC Hgb Hct MCV MCH MCHC RDW Plt Count Neut % (Auto) Lymph % (Auto) Chester % (Auto) Eos % (Auto) Baso % (Auto) Neut # (Auto) Lymph # (Auto) Chester # (Auto) Eos # (Auto) Baso # (Auto) Sodium Potassium Chloride Carbon Dioxide BUN Creatinine Estimated GFR BUN/Creatinine Ratio Glucose Hemoglobin A1c Calcium Magnesium Total Bilirubin 0.6 Conjugated Bilirubin 0.0 Unconjugated Bilirubin 0.7 AST 25 ALT 18 Alkaline Phosphatase 47 Total Creatine Kinase CK-MB (CK-2) CK-MB (CK-2) Rel Index Troponin I < 0.012 Total Protein 6.6 Albumin 4.2 Globulin 2.4 Albumin/Globulin Ratio 1.8 Triglycerides Cholesterol LDL Cholesterol, Calc HDL Cholesterol TSH SARS-CoV-2 (PCR) [facility] Medical History Essential hypertension Surgical History Hx of tonsillectomy Family History Father Coronary artery occlusion with myocardial infarction Mother Old age Social History household members: spouse Smoking Status: Never smoker alcohol intake: never Discharge Assessment & Plan Assessment and Plan Assessment: Benign positional vertigo Hypertension Plan of Treatment: Add metoprolol to blood pressure regimen Outpatient referral to Physical therapy for vestibular training Discharge Plan Discharge Plan Patient Disposition: Home Discharge orders & Medications Prescriptions: New metoprolol succinate 25 mg Tablet Extended Release 24 Hr 25 mg PO DAILY Qty: 30 0RF Continued telmisartan 80 mg tablet 80 mg PO DAILY 0RF Discontinued felodipine 10 mg tablet extended release 24 hr 10 mg PO DAILY 0RF Follow up/Referrals: Juan Peck MD [Primary Care Provider] - Discharge Data Primary Care Provider: Juan Peck Attending Provider: Daniela Bejarano VTE Deep Vein Thrombosis/Pulmonary Embolism Present on Admission: No
--- NOTE | 2021-12-02 16:12 | PC.NURSE ---
Day shift: Paperwork signed and all questions answered. Pt has all personal belongings. Pt also has scripts. Was on tele and he was Moris and Dr Phillips aware. Taken to car in at approx 1615. Reports only very mild dizziness that comes and goes. Has been steady on his feet.
== END 2021-12-02 16:22 | disposition home or self-care (01) ==
LOC: ED 21:34 → AC 22:02
PROVIDERS: Emergency Medicine; Admitting Provider Nurse Practitioner Family; Emergency Provider Emergency Medicine; PCP Family Medicine; Referring Provider Emergency Medicine; Visit Provider Nurse Practitioner Family
DX: H81.10 Benign paroxysmal vertigo, unspecified ear (principal); I10 Essential (primary) hypertension; R29.705 NIHSS score 5; I16.0 Hypertensive urgency; R11.2 Nausea with vomiting, unspecified; Z20.822 Contact with and (suspected) exposure to COVID-19
CPT/HCPCS: 36415; 70496; 70498; 70551; 71045; 80048; 80053; 80061; 80076; 82550; 83036; 83735; 84443; 84484; 85025; 87635; 93005; 93010; 93306; 96361; 96372; 96374; 96375; 96376; 97161; 99284; 99285; C9803; G0378; J1650; J2060; J2405